=== PATIENT | female | born 1960 | race Caucasian/White ===

== ENCOUNTER → 2016-12-08 | Outpatient (CLI) | payer OTHER ==
--- NOTE | ~2016-12-08 | NM19 ---
[facility] A Service of [facility] & [facility] RADIOLOGY TEXT RESULTS PATIENT: QUINTON SIERRA LOCATION: [facility] : 58 UNIT #: [id number] AGE: [address]: JAI ALEXANDRE MD SEX: F ORDER DR: [id number] [facility] [address] [place], [place] [address] [id number] O MR#: [id number] Acc #: [id number] NAME: QUINTON SIERRA : 1960 SEX: F STUDY DATE/TIME: 12/08/2016 8:18 UNIT: [facility] ROOM: STUDY DESCRIPTION: [place] Gastric Emptying Study Attending Physician: Jai Alexandre M.D. Referring Physician: Jai Alexandre M.D. Ordering Physician: Jai Alexandre M.D. Primary Care Physician: Jai Alexandre M.D. MEDICAL IMAGING REPORT This report is preliminary unless electronic signature is present EXAM Gastric emptying scan, 12/08/2016. HISTORY Nausea, abdominal bloating, and lower abdominal pain for 6 months after meals, progressively worsening. FINDINGS The patient ingested 545 mcCi of technetium 99m tagged sulfur colloid in eggs. Images of the upper abdomen were obtained for 4 hours. After 1 hour, the stomach was 71% empty and after 2 hours the stomach was 97% empty. Normal range is greater than 60% empty after 2 hours of imaging and greater than 90% empty after 4 hours of imaging. IMPRESSION Normal gastric emptying scan. Dictated by... Negro Guido M.D. THIS IS AN ELECTRONICALLY VERIFIED REPORT Negro Guido M.D. at 12/09/2016 7:27 AM AMITA/jeri TD: 12/08/2016 14:02 JOB #: [id number] MEDICAL IMAGING REPORT Page 1 of 1 COPY
== END | disposition home or self-care (01) ==
LOC: CNUC 12-02 08:30
DX: R11.0 Nausea (principal)
CPT/HCPCS: 78264; A9541